=== PATIENT | female | born 1960 | race Caucasian/White ===

== ENCOUNTER 2018-05-11 19:20 | Emergency (ER) | payer MEDICAID ==
[~2018-05-11] VITALS: Ht 170.2 cm; Wt 50.9 kg
[~2018-05-11 19:20] MED LIST: ACET650T11 PO; ALBU18HF2 IH; BECL8.7A7 IH; CLON-515 PO; FLUT16SP2 BOTHNARES; GABA800T2 PO; LORA10TA7 PO; MIRT15TA PO; ONDA4TAB11 PO; PRAZ2CAP2 PO; QUET150T2 PO; QUET400T12 PO; SPIIN IH; VENL75TA90 PO
[2018-05-11 19:24] VITALS: BP 128/80
[2018-05-11] MEDS ORDERED: LIDOcaine 1% 30ml preserv. free vial IJ ONE (23:10)
[2018-05-11] MEDS ORDERED: TETanus/Pertussis (Acell)/Diphther VAC/PF (Tdap-Adult) 0.5ml syringe IMVAC ONE (23:15)
[2018-05-11] MEDS ORDERED: LIDOcaine 1% (10mg/ml) 5ml syringe IJ ONE (23:25)
[2018-05-11] MEDS ORDERED: ONDA4TAB12 PO (23:31)
[2018-05-11] MEDS ORDERED: HYDR-3965 PO (23:31)
[2018-05-11] MEDS ORDERED: IBUP-1986 PO (23:31)
[2018-05-11] MEDS ORDERED: LIDOcaine 1% 30ml preserv. free vial IJ STA (23:51)
== END 2018-05-12 00:23 | disposition left against medical advice (07) ==
LOC: ER 19:20
DX: S92.411A Displaced fracture of proximal phalanx of right great toe, initial encounter for closed fracture (principal); S80.02XA Contusion of left knee, initial encounter; S50.01XA Contusion of right elbow, initial encounter; S09.90XA Unspecified injury of head, initial encounter; F12.90 Cannabis use, unspecified, uncomplicated; I25.10 Atherosclerotic heart disease of native coronary artery without angina pectoris; G43.909 Migraine, unspecified, not intractable, without status migrainosus; E78.00 Pure hypercholesterolemia, unspecified; I25.2 Old myocardial infarction; J44.9 Chronic obstructive pulmonary disease, unspecified; K21.9 Gastro-esophageal reflux disease without esophagitis; M19.90 Unspecified osteoarthritis, unspecified site; Z86.14 Personal history of Methicillin resistant Staphylococcus aureus infection; Z90.49 Acquired absence of other specified parts of digestive tract; Z90.710 Acquired absence of both cervix and uterus; Z88.5 Allergy status to narcotic agent; Z88.8 Allergy status to other drugs, medicaments and biological substances; Z79.899 Other long term (current) drug therapy; Z60.2 Problems related to living alone; W03.XXXA Other fall on same level due to collision with another person, initial encounter; Y93.89 Activity, other specified; Y92.89 Other specified places as the place of occurrence of the external cause; Y99.8 Other external cause status
CPT/HCPCS: 73590; 73660; 90715; 96372; 99284; J2001

== ENCOUNTER 2025-04-08 08:01 | Outpatient (CLI) | payer MEDICAID ==
[~2025-04-08 08:01] MED LIST changes: -CLON-515 PO; +CLON2TAB45 PO; +GABA-1555 PO; -GABA800T2 PO; +IBUP-1986 PO; +MIRT-142 PO; -MIRT15TA PO; +ONDA-103 PO; +ONDA-243 PO; -ONDA4TAB11 PO; -QUET400T12 PO; +QUET400T13 PO
--- NOTE | 2025-04-08 09:46 | RADIOLOGY REPORT ---
INDICATION: LOWER ABDOMINAL PAIN TECHNIQUE: Multiple real-time sonographic images of the abdomen soft tissues of the left lower quadr ant were obtained. COMPARISON: None FINDINGS: The liver is homogenous in echogenicity. The liver measures 10.0 cm. No intrahepatic bilia ry ductal dilatation is noted. The gallbladder wall measures 0.2 cm and is unremarkable. No gallstones or sludge is seen. The com mon duct measures 0.3 cm and is unremarkable. No pericholecystic fluid is noted. The right kidney measures 9.9cm. No hydronephrosis. The left kidney measures 9.4cm. No hydronephros is. There is a left renal cyst measuring 1.4 cm. Echogenic bilateral kidneys suggestive of chronic me dical renal disease. The spleen measures 8.5cm, within normal limits. The echogenicity is within normal limits. The pancreas is not well visualized due to obscuration from bowel gas. The visualized portions of the IVC and aorta are grossly unremarkable. In the soft tissues of the left lower quadrant, no hernia or abnormality is visualized. IMPRESSION: Echogenic bilateral kidneys suggestive of chronic medical renal disease. Left renal cysts measuring u p to 1.4 cm. No hydronephrosis. In the soft tissues of the left lower quadrant, no hernia or abnormal ity is visualized.
--- NOTE | 2025-04-08 09:49 | RADIOLOGY REPORT ---
CLINICAL INDICATION: FRACTURE OF LATERAL MALLEOULUS TECHNIQUE: 3 radiographic views of the left foot were obtained. Comparison: None FINDINGS/IMPRESSION: There is no evidence of acute fracture or dislocation. Chronic lateral malleolus fracture. The visualized joint space is well maintained. The alignment is anatomical. There is no radiopaque foreign body.
== END 2025-04-08 23:59 | disposition home or self-care (01) ==
LOC: RAD 08:01
PROVIDERS: ATTEND Nurse Practitioner
DX: S82.65XD Nondisplaced fracture of lateral malleolus of left fibula, subsequent encounter for closed fracture with routine healing (principal); R10.30 Lower abdominal pain, unspecified; X58.XXXA Exposure to other specified factors, initial encounter; Y93.89 Activity, other specified; Y92.89 Other specified places as the place of occurrence of the external cause; Y99.8 Other external cause status
CPT/HCPCS: 73610; 76700

== ENCOUNTER 2025-10-16 14:24 | Outpatient (CLI) | payer MEDICARE, MEDICAID ==
--- NOTE | 2025-10-16 15:54 | RADIOLOGY REPORT ---
EXAM: CT CT LOWER EXTREMITY INDICATION: EFFUSION, LEFT ANKLE TECHNIQUE: Axial images of left lower extremity/ankle have been obtained along with coronal and sagittal reformatted images. All CT scans at this facility use dose modulation, iterative reconstruction, and/or weight based dosing when appropriate to reduce radiation dose to as low as reasonably achievable. COMPARISON: None FINDINGS: BONES: Small Achilles insertional enthesophyte. Osseous irregularity of the inferior aspect of the lateral malleolus likely compatible with a prior avulsive injury with the adjacent small ossicle. No CT evidence of an acute fracture or aggressive osseous lesion. MUSCLES: No abnormal attenuation. JOINT SPACES: No tibiotalar joint effusion. TENDONS/LIGAMENTS: Intact. OTHER: None. IMPRESSION: 1. No CT evidence of an acute fracture. 2. Small Achilles insertional enthesophyte. 3. Osseous irregularity of the inferior aspect of the lateral malleolus likely compatible with a prior avulsive injury with the adjacent small ossicle.
== END 2025-10-16 23:59 | disposition home or self-care (01) ==
LOC: RAD 14:24
PROVIDERS: ATTEND Podiatrist Foot & Ankle Surgery
DX: S82.832A Other fracture of upper and lower end of left fibula, initial encounter for closed fracture (principal); M25.472 Effusion, left ankle; M25.372 Other instability, left ankle; M76.62 Achilles tendinitis, left leg; X58.XXXA Exposure to other specified factors, initial encounter; Y93.89 Activity, other specified; Y92.89 Other specified places as the place of occurrence of the external cause; Y99.8 Other external cause status
CPT/HCPCS: 73700